=== PATIENT | male | born 1995 | race Caucasian/White ===

== ENCOUNTER 2019-01-29 09:11 | Emergency (ER) | payer SELFPAY ==
--- NOTE | 2019-01-29 09:25 | EDM.PDOC ---
ED HPI GENERAL MEDICAL PROBLEM - General Chief Complaint: Back Pain or Injury Stated Complaint: PAIN IN THE GROWNING Time Seen by Provider: 01/29/19 09:20 Source of Information: Reports: Patient History Limitations: Reports: No Limitations - History of Present Illness INITIAL COMMENTS - FREE TEXT/NARRATIVE: History of present illness: []Patient was at work this morning and strapped in a pelvic harness working approximately 20 feet in the air and was and was unexpectedly lifted by a winch and then dropped approximately 3 feet in the air. He complains of pain in his low back and pelvis where the harness jerked him. He said his touched his low back above his buttock and he felt some numbness. He denies any incontinence or numbness and tingling in lower extremities. Patient ambulated into the ED with a coworker. Review of systems: As per history of present illness and below otherwise all systems reviewed and negative. Past medical history: As per history of present illness and as reviewed below otherwise noncontributory. Surgical history: As per history of present illness and as reviewed below otherwise noncontributory. Social history: No reported history of drug or alcohol abuse. Family history: As per history of present illness and as reviewed below otherwise noncontributory. Physical exam: General: Well developed, well nourished in NAD HEENT: Atraumatic, normocephalic, pupils reactive, negative for conjunctival pallor or scleral icterus, mucous membranes moist, throat clear, neck supple, nontender, trachea midline. Lungs: Clear to auscultation, breath sounds equal bilaterally, chest nontender. Heart: S1S2, regular, negative for clicks, rubs, or JVD. Abdomen: NABS, Soft, nondistended, nontender. Negative for masses or hepatosplenomegaly. Negative for costovertebral tenderness. Pelvis: Stable nontender. Genitourinary: Deferred. Rectal: Deferred. Extremities: Atraumatic, negative for cords or calf pain. Neurovascular unremarkable. Neuro: Awake, alert, oriented. Cranial nerves II through XII unremarkable. Cerebellum unremarkable. Motor and sensory unremarkable throughout. Exam nonfocal. Skin:warm and dry Diagnostics: CBC, chemistry, UA, CT lumbar spine and abdomen and pelvis Therapeutics: Declined pain meds ED Course: Stable Impression: Right-sided Superior rami nondisplaced fracture Prescriptions: Tramadol Plan: Follow-up with orthopedics or primary care take meds as directed return if symptoms worsen or change., Definitive disposition and diagnosis as appropriate pending reevaluation and review of above. bilateral groin and lower back Pain Score (Numeric/FACES): 7 - Related Data Allergies Allergy/AdvReac Type Severity Reaction Status Date / Time No Known Allergies Allergy Verified 01/29/19 09:14 Home Meds: Home Meds traMADol HCl [Tramadol HCl] 50 mg PO Q6H PRN #20 tablet 01/29/19 [Rx] Past Medical History - Past Health History Medical/Surgical History: Denies Medical/Surgical History Other Respiratory History: 3 years ago hx of pneumonia and fluid in the lungs - Past Surgical History Other Musculoskeletal Surgeries/Procedures:: foot surgery ED ROS GENERAL - Review of Systems Review Of Systems: ROS reveals no pertinent complaints other than HPI. ED EXAM,LOWER BACK PAIN/INJURY - Physical Exam Exam: See Below Course - Vital Signs Last Recorded V/S: Last Vital Signs Temp 98.0 F 01/29/19 09:29 Pulse 96 01/29/19 09:29 Resp 16 01/29/19 09:29 BP 117/74 01/29/19 09:29 Pulse Ox 96 01/29/19 09:29 - Orders/Labs/Meds Orders: Active Orders 24 hr Category Date Time Status Sodium Chloride 0.9% [Normal Saline] 1,000 ml Med 01/29/19 09:46 Active IV .Bolus Sodium Chloride 0.9% [Saline Flush] Med 01/29/19 09:31 Active 10 ml FLUSH ASDIRECTED PRN Sodium Chloride 0.9% [Saline Flush] Med 01/29/19 09:31 Active 2.5 ml FLUSH ASDIRECTED PRN Saline Lock Insert [OM.PC] Stat Oth 01/29/19 09:31 Ordered Medication Orders Sodium Chloride (Normal Saline) 1,000 mls @ 999 mls/hr IV .Bolus ONE Stop: 01/29/19 10:46 Last Admin: 01/29/19 10:07 Dose: 999 mls/hr Sodium Chloride (Saline Flush) 10 ml FLUSH ASDIRECTED PRN PRN Reason: Keep Vein Open Last Admin: 01/29/19 10:08 Dose: 10 ml Sodium Chloride (Saline Flush) 2.5 ml FLUSH ASDIRECTED PRN PRN Reason: Keep Vein Open Last Admin: 01/29/19 10:08 Dose: 2.5 ml Labs: Laboratory Tests 01/29/19 01/29/19 01/29/19 Range/Units 09:40 09:40 09:45 WBC 7.45 (4.0-11.0) K/uL RBC 4.56 (4.50-5.90) M/uL Hgb 14.6 (13.0-17.0) g/dL Hct 41.5 (38.0-50.0) % MCV 91.0 (80.0-98.0) fL MCH 32.0 (27.0-32.0) pg MCHC 35.2 (31.0-37.0) g/dL RDW Std Deviation 42.4 (28.0-62.0) fl RDW Coeff of Tiana 13 (11.0-15.0) % Plt Count 224 (150-400) K/uL MPV 9.60 (7.40-12.00) fL Neut % (Auto) 71.0 (48.0-80.0) % Lymph % (Auto) 19.6 (16.0-40.0) % Graves % (Auto) 7.9 (0.0-15.0) % Eos % (Auto) 1.2 (0.0-7.0) % Baso % (Auto) 0.3 (0.0-1.5) % Neut # (Auto) 5.3 (1.4-5.7) K/uL Lymph # (Auto) 1.5 (0.6-2.4) K/uL Graves # (Auto) 0.6 (0.0-0.8) K/uL Eos # (Auto) 0.1 (0.0-0.7) K/uL Baso # (Auto) 0.0 (0.0-0.1) K/uL Nucleated RBC % 0.0 /100WBC Nucleated RBCs # 0 K/uL Sodium 137 (136-148) mmol/L Potassium 3.8 (3.5-5.1) mmol/L Chloride 103 (98-107) mmol/L Carbon Dioxide 23.4 (21.0-32.0) mmol/L BUN 6 L (7.0-18.0) mg/dL Creatinine 0.8 (0.8-1.3) mg/dL Est Cr Clr Drug Dosing 159.52 mL/min Estimated GFR (MDRD) > 60.0 ml/min Glucose 98 (74-106) mg/dL Calcium 8.4 L (8.5-10.1) mg/dL Total Bilirubin 0.7 (0.2-1.0) mg/dL AST 20 (15-37) IU/L ALT 22 (14-63) IU/L Alkaline Phosphatase 96 (46-116) U/L Total Protein 7.0 (6.4-8.2) g/dL Albumin 3.9 (3.4-5.0) g/dL Globulin 3.1 (2.6-4.0) g/dL Albumin/Globulin Ratio 1.3 (0.9-1.6) Urine Color YELLOW Urine Appearance CLEAR Urine pH 6.5 (5.0-8.0) Ur Specific [place] <= 1.005 (1.001-1.035) Urine Protein NEGATIVE (NEGATIVE) mg/dL Urine Glucose (UA) NEGATIVE (NEGATIVE) mg/dL Urine Ketones NEGATIVE (NEGATIVE) mg/dL Urine Occult Blood NEGATIVE (NEGATIVE) Urine Nitrite NEGATIVE (NEGATIVE) Urine Bilirubin NEGATIVE (NEGATIVE) Urine Urobilinogen 0.2 (<2.0) EU/dL Ur Leukocyte Esterase NEGATIVE (NEGATIVE) Urine RBC NONE SEEN (0-2/HPF) Urine WBC 0-1 (0-5/HPF) Ur Epithelial Cells NOT SEEN (NONE-FEW) Urine Bacteria RARE (NEGATIVE) Meds: Medications Generic Name Dose Route Start Last Admin Trade Name Freq PRN Reason Stop Dose Admin Sodium Chloride 1,000 mls @ 999 mls/hr 01/29/19 09:46 01/29/19 10:07 Normal Saline IV 01/29/19 10:46 999 mls/hr .Bolus ONE Administration Sodium Chloride 10 ml 01/29/19 09:31 01/29/19 10:08 Saline Flush FLUSH 10 ml ASDIRECTED PRN Administration Keep Vein Open Sodium Chloride 2.5 ml 01/29/19 09:31 01/29/19 10:08 Saline Flush FLUSH 2.5 ml ASDIRECTED PRN Administration Keep Vein Open Discontinued Medications Generic Name Dose Route Start Last Admin Trade Name Freq PRN Reason Stop Dose Admin Iopamidol 100 ml 01/29/19 09:54 01/29/19 10:02 Isovue Multipack-370 (76%) IVPUSH 01/29/19 09:55 100 ml ONETIME STA Administration Departure - Departure Time of Disposition: 10:44 Disposition: Home, Self-Care 01 Condition: Good Clinical Impression: Closed fracture of single pubic ramus of pelvis Qualifiers: Encounter type: initial encounter Laterality: right Qualified Code(s): S32.591A - Other specified fracture of right pubis, initial encounter for closed fracture - Discharge Information *PRESCRIPTION DRUG MONITORING PROGRAM REVIEWED*: No *COPY OF PRESCRIPTION DRUG MONITORING REPORT IN PATIENT NAVA: No Referrals: PCP,None [Primary Care Provider] - Forms: ED Department Discharge Additional Instructions: The following information is given to patients seen in the emergency department who are being discharged to home. This information is to outline your options for follow-up care. We provide all patients seen in our emergency department with a follow-up referral. The need for follow-up, as well as the timing and circumstances, are variable depending upon the specifics of your emergency department visit. If you don't have a primary care physician on staff, we will provide you with a referral. We always advise you to contact your personal physician following an emergency department visit to inform them of the circumstance of the visit and for follow-up with them and/or the need for any referrals to a consulting specialist. The emergency department will also refer you to a specialist when appropriate. This referral assures that you have the opportunity for follow-up care with a specialist. All of these measure are taken in an effort to provide you with optimal care, which includes your follow-up. Under all circumstances we always encourage you to contact your private physician who remains a resource for coordinating your care. When calling for follow-up care, please make the office aware that this follow-up is from your recent emergency room visit. If for any reason you are refused follow-up, please contact the [facility] Emergency Department at and asked to speak to the emergency department charge nurse. Take meds as directed, follow up with your primary care physician, return to ER if symptoms worsen or change. [facility] [address] [place] [id number] - My Orders Last 24 Hours: My Active Orders 01/29/19 09:31 Sodium Chloride 0.9% [Saline Flush] 10 ml FLUSH ASDIRECTED PRN Sodium Chloride 0.9% [Saline Flush] 2.5 ml FLUSH ASDIRECTED PRN Saline Lock Insert [OM.PC] Stat 01/29/19 09:46 Sodium Chloride 0.9% [Normal Saline] 1,000 ml IV .Bolus - Assessment/Plan Last 24 Hours: My Active Orders 01/29/19 09:31 Sodium Chloride 0.9% [Saline Flush] 10 ml FLUSH ASDIRECTED PRN Sodium Chloride 0.9% [Saline Flush] 2.5 ml FLUSH ASDIRECTED PRN Saline Lock Insert [OM.PC] Stat 01/29/19 09:46 Sodium Chloride 0.9% [Normal Saline] 1,000 ml IV .Bolus
[2019-01-29] MEDS ORDERED: Sodium Chloride 0.9% 10 ML Syringe FLUSH PRN (09:31)
[2019-01-29] MEDS ORDERED: Sodium Chloride 0.9% 2.5 ML Syringe FLUSH PRN (09:31)
[2019-01-29] MEDS ORDERED: Sodium Chloride 0.9% 1,000 ML IV ONE (09:46)
[2019-01-29] MEDS ORDERED: Iopamidol 755 MG/ML 500 ML Multipack Bottle IVPUSH STA (09:54)
[2019-01-29 10:11] LABS: CHLORIDE,CL 103 mmol/L (98-107); SODIUM,NA 137 mmol/L (136-148)
--- NOTE | 2019-01-29 10:30 | CT ---
CT of the lumbar spine, abdomen and pelvis with contrast. HISTORY: Pain TECHNIQUE: Axial CT images were obtained of the lumbar spine, abdomen and pelvis following administration of 100 mL of Isovue-370 in the left antecubital fossa without complication. Coronal and sagittal reconstructions obtained. FINDINGS: The lung bases are clear, no pleural effusion. The liver, spleen, adrenal glands, and pancreas appear normal. The gallbladder is normal. There is no bulky retroperitoneal lymphadenopathy or abdominal ascites. The kidneys enhance and function symmetrically without evidence of obstructive uropathy. The large and small bowel are normal in caliber without evidence of obstruction. No focal pericolonic inflammation or stranding. The urinary bladder is minimally filled. Possible trace free pelvic fluid. No bulky pelvic lymphadenopathy. Appendix is not well characterized. Lumbar spine: There is a nondisplaced fracture within the superior ramus without a definitive corresponding fracture within the inferior ramus visualized. The lumbar spinal alignment is otherwise normal. Vertebral body heights and disc spaces appear well-maintained. IMPRESSION: 1. Nondisplaced right superior pubic ramus fracture. 2. Otherwise no additional fracture identified. 3. Possible trace free pelvic fluid. This is minimal. 4. No evidence of a solid organ injury.
[2019-01-29 10:48] VITALS: BP 124/71
== END 2019-01-29 10:50 | disposition home or self-care (01) ==
LOC: MW.ED 09:11
DX: S32.511A Fracture of superior rim of right pubis, initial encounter for closed fracture (principal); Y99.0 Civilian activity done for income or pay; X50.9XXA Other and unspecified overexertion or strenuous movements or postures, initial encounter
CPT/HCPCS: 36415; 72131; 74177; 80053; 81001; 85025; 96360; 99284; J7040; Q9967

== ENCOUNTER 2021-03-05 15:48 | Emergency (ER) | payer BC ==
[2021-03-05] MEDS ORDERED: Sodium Chloride 0.9% 1,000 ML IV ONE (16:44)
[2021-03-05] MEDS ORDERED: Piperacillin/Tazobactam 3.375 GM in Sodium Chloride 0.9% 50 ML IV ONE (16:45)
[2021-03-05] MEDS ORDERED: methylPREDNISolone Sodium Succinate 125 MG/2 ML SDV IVPUSH ONE (16:45)
[2021-03-05] MEDS ORDERED: Ketorolac 30 MG/ML SDV IVPUSH ONE (16:46)
[2021-03-05] MEDS ORDERED: Acetaminophen 500 MG Tab PO ONE (16:46)
[2021-03-05] MEDS ORDERED: Albuterol/Ipratropium 3.0-0.5 MG/3 ML Neb Soln NEB ONE ×3 (16:46)
[2021-03-05] MEDS ORDERED: Albuterol/Ipratropium 3.0-0.5 MG/3 ML Neb Soln ONE (16:54)
[2021-03-05 17:08] LABS: BLOOD UREA NITROGEN,BUN 5 mg/dL (7.0-18.0); CARBON DIOXIDE,CO2 23.9 mmol/L (21.0-32.0); CHLORIDE,CL 99 mmol/L (98-107); GLUCOSE RANDOM 143 mg/dL (74-106); SODIUM,NA 136 mmol/L (136-148)
--- NOTE | 2021-03-05 17:13 | EDM.PDOC ---
ED HPI GENERAL MEDICAL PROBLEM - General Chief Complaint: Respiratory Problem Stated Complaint: INFECTION Time Seen by Provider: 03/05/21 15:56 Bilateral Chest Pain Score (Numeric/FACES): 6 - Related Data Allergies Allergy/AdvReac Type Severity Reaction Status Date / Time No Known Allergies Allergy Verified 03/05/21 16:27 Home Meds: Home Meds traMADol HCl [Tramadol HCl] 50 mg PO Q6H PRN #20 tablet 01/29/19 [Rx] Past Medical History - Past Health History Medical/Surgical History: Denies Medical/Surgical History Other Respiratory History: 3 years ago hx of pneumonia and fluid in the lungs - Past Surgical History Other Musculoskeletal Surgeries/Procedures:: foot surgery Social & Family History - Family History Family Medical History: No Pertinent Family History - Caffeine Use Caffeine Use: Reports: None Course - Vital Signs Last Recorded V/S: Last Vital Signs Temp 38.9 C H 03/05/21 16:58 Pulse 84 03/05/21 16:35 Resp 22 H 03/05/21 16:35 BP 117/67 03/05/21 16:35 Pulse Ox 97 03/05/21 16:35 - Orders/Labs/Meds Orders: Active Orders 24 hr Category Date Time Status Cardiac Monitoring [RC] . DIRECTED Care 03/05/21 16:44 Active EKG Documentation Completion [RC] STAT Care 03/05/21 16:44 Active RT Aerosol Therapy [RC] ASDIRECTED Care 03/05/21 16:46 Active RT Aerosol Therapy [RC] ASDIRECTED Care 03/05/21 16:46 Active RT Aerosol Therapy [RC] ASDIRECTED Care 03/05/21 16:46 Active Chest 2V [CR] Stat Exams 03/05/21 16:44 Ordered COVID-19/FLU A+B [MOLEC] Stat Lab 03/05/21 16:47 Ordered CULTURE BLOOD [BC] Stat Lab 03/05/21 16:34 Received CULTURE BLOOD [BC] Stat Lab 03/05/21 16:44 Received Piperacillin/Tazobactam [Piperacil-Tazobact] 3.375 gm Med 03/05/21 16:45 Active Sodium Chloride 0.9% [Normal Saline] 50 ml IV ONETIME Sodium Chloride 0.9% [Normal Saline] 1,000 ml Med 03/05/21 16:44 Active IV BOLUS Blood Culture x2 Reflex Set [OM.PC] Stat Oth 03/05/21 16:45 Ordered Medication Orders Sodium Chloride (Normal Saline) 1,000 mls @ 999 mls/hr IV BOLUS ONE Stop: 03/05/21 17:44 Last Admin: 03/05/21 16:57 Dose: 999 mls/hr Documented by: KATIANA Piperacillin Sod/Tazobactam (Sod 3.375 gm/ Sodium Chloride) 50 mls @ 100 mls/hr IV ONETIME ONE Stop: 03/05/21 17:14 Last Admin: 03/05/21 16:57 Dose: 100 mls/hr Documented by: KATIANA Labs: Laboratory Tests 03/05/21 03/05/21 03/05/21 Range/Units 16:34 16:34 16:34 WBC 12.18 H (4.0-11.0) K/uL RBC 3.75 L (4.50-5.90) M/uL Hgb 12.0 L (13.0-17.0) g/dL Hct 34.4 L (38.0-50.0) % MCV 91.7 (80.0-98.0) fL MCH 32.0 (27.0-32.0) pg MCHC 34.9 (31.0-37.0) g/dL RDW Std Deviation 43.1 (28.0-62.0) fl RDW Coeff of Tiana 13 (11.0-15.0) % Plt Count 213 (150-400) K/uL MPV 9.50 (7.40-12.00) fL Neut % (Auto) 80.8 H (48.0-80.0) % Lymph % (Auto) 10.2 L (16.0-40.0) % Chambers % (Auto) 8.6 (0.0-15.0) % Eos % (Auto) 0.2 (0.0-7.0) % Baso % (Auto) 0.2 (0.0-1.5) % Neut # (Auto) 9.9 H (1.4-5.7) K/uL Lymph # (Auto) 1.2 (0.6-2.4) K/uL [place] # (Auto) 1.1 H (0.0-0.8) K/uL Eos # (Auto) 0.0 (0.0-0.7) K/uL Baso # (Auto) 0.0 (0.0-0.1) K/uL Nucleated RBC % 0.0 /100WBC Nucleated RBCs # 0 K/uL Sodium 136 (136-148) mmol/L Potassium 3.0 L (3.5-5.1) mmol/L Chloride 99 (98-107) mmol/L Carbon Dioxide 23.9 (21.0-32.0) mmol/L BUN 5 L (7.0-18.0) mg/dL Creatinine 0.9 (0.8-1.3) mg/dL Est Cr Clr Drug Dosing 118.65 mL/min Estimated GFR (MDRD) > 60.0 ml/min Glucose 143 H (74-106) mg/dL Lactic Acid 1.6 (0.4-2.0) mmol/L Calcium 7.6 L (8.5-10.1) mg/dL Total Bilirubin 0.4 (0.2-1.0) mg/dL AST 15 (15-37) IU/L ALT 17 (14-63) IU/L Alkaline Phosphatase 79 (46-116) U/L Troponin I < 0.050 (0.000-0.056) ng/mL Total Protein 6.1 L (6.4-8.2) g/dL Albumin 2.9 L (3.4-5.0) g/dL Globulin 3.2 (2.6-4.0) g/dL Albumin/Globulin Ratio 0.9 (0.9-1.6) Meds: Medications Generic Name Dose Route Start Last Admin Trade Name Freq PRN Reason Stop Dose Admin Sodium Chloride 1,000 mls @ 999 mls/hr 03/05/21 16:44 03/05/21 16:57 Normal Saline IV 03/05/21 17:44 999 mls/hr BOLUS ONE Administration Piperacillin Sod/Tazobactam 50 mls @ 100 mls/hr 03/05/21 16:45 03/05/21 16:57 Sod 3.375 gm/ Sodium Chloride IV 03/05/21 17:14 100 mls/hr ONETIME ONE Administration Discontinued Medications Generic Name Dose Route Start Last Admin Trade Name Freq PRN Reason Stop Dose Admin Acetaminophen 1,000 mg 03/05/21 16:46 03/05/21 16:58 Acetaminophen 500 Mg Tab PO 03/05/21 16:47 1,000 mg ONETIME ONE Administration Albuterol/Ipratropium 3 ml 03/05/21 16:46 03/05/21 16:57 Albuterol/Ipratropium 3.0-0.5 Mg/3 Ml Neb Soln NEB 03/05/21 16:47 3 ml ONETIME ONE Administration Albuterol/Ipratropium 3 ml 03/05/21 16:46 03/05/21 16:57 Albuterol/Ipratropium 3.0-0.5 Mg/3 Ml Neb Soln NEB 03/05/21 16:47 3 ml ONETIME ONE Administration Albuterol/Ipratropium 3 ml 03/05/21 16:46 03/05/21 16:57 Albuterol/Ipratropium 3.0-0.5 Mg/3 Ml Neb Soln NEB 03/05/21 16:47 3 ml ONETIME ONE Administration Albuterol/Ipratropium Confirm 03/05/21 16:54 03/05/21 17:00 Albuterol/Ipratropium 3.0-0.5 Mg/3 Ml Neb Soln Administered 03/05/21 16:55 Not Given Dose 6 ml .ROUTE .STK-MED ONE Ketorolac Tromethamine 30 mg 03/05/21 16:46 03/05/21 16:58 Ketorolac 30 Mg/Ml Sdv IVPUSH 03/05/21 16:47 30 mg ONETIME ONE Administration Methylprednisolone Sodium Succinate 125 mg 03/05/21 16:45 03/05/21 16:58 Methylprednisolone Sodium Succinate 125 Mg/2 Ml Sdv IVPUSH 03/05/21 16:46 125 mg ONETIME ONE Administration Departure - Discharge Information Referrals: PCP,None [Primary Care Provider] - Sepsis Event Note (ED) - Evaluation Sepsis Screening Result: Possible Sepsis Risk - Focused Exam Vital Signs: Vital Signs Temp Temp Pulse Resp BP Pulse Ox 03/05/21 16:58 38.9 C H 03/05/21 16:35 39.4 C H 84 22 H 117/67 97
--- NOTE | 2021-03-05 17:14 | PCM.SN.2 ---
- Free Text/Narrative Note: EKG sinus rhythm incomplete right bundle branch block left anterior fascicular block. ST elevation consistent with possible pericarditis or early repole. Heart rate 91 [place] 157 [place] -105. No prior for comparison. Impression no obvious acute injury
[2021-03-05 17:41] VITALS: BP 128/67; PULSE 90
--- NOTE | 2021-03-05 17:42 | EDM.PDOC ---
ED HPI GENERAL MEDICAL PROBLEM - General Chief Complaint: Respiratory Problem Stated Complaint: INFECTION Time Seen by Provider: 03/05/21 15:56 Source of Information: Reports: Patient History Limitations: Reports: No Limitations - History of Present Illness INITIAL COMMENTS - FREE TEXT/NARRATIVE: HISTORY AND PHYSICAL: History of present illness: Patient is a 25-year-old male who presents to the ED today with concern of cough, fever, and worsening fatigue over the past 2 weeks. Patient states that 2 weeks ago, the rest of his family was sick with a "common cold ". Patient states that everybody else in his family improved but he has continued to have a fever, cough, and fatigue. Patient states that he does smoke a pack a day and has had to decrease the amount he smokes due to the cough and states that he has pain with deep inspiration. Patient states that his symptoms have worsened more over the past 3 days and states that he has had a difficult time working and s tates that he is concerned about getting fired as he is not able to perform his job due to his symptoms. Patient states his is also been concerned about him as the past 3 days when he gets off work he goes straight to bed and does not interact with her. Patient states that he "gets this every year "and states that steroids have helped in the past. Patient denies any other health history or any other symptoms or concerns. Patient denies shortness of breath. Denies headache, neck stiff ness, change in vision, syncope, or near syncope. Denies nausea, vomiting, abdominal pain, diarrhea, constipation, or dysuria. Has not noted any blood in urine or stool. Patient has been eating and drinking appropriately. Review of systems: As per history of present illness and below otherwise all systems reviewed and negative. Past medical history: As per history of present illness and as reviewed below otherwise noncontributory. Surgical history: As per history of present illness and as reviewed below otherwise noncontributory. Social history: See social history for further information Family history: As per history of present illness and as reviewed below otherwise noncontributory. Physical exam: General: Patient is alert, oriented, and in no acute distress. Patient laying comfortably on exam table, tired appearing. Patient has been increased respiratory rate at 22 and febrile at 102.9, otherwise vitally stable and reviewed by me. HEENT: Atraumatic, normocephalic, pupils equal and reactive bilaterally, negative for conjunctival pallor or scleral icterus, mucous membranes moist, TMs normal bilaterally, throat clear, neck supple, nontender, trachea midline. No drooling or trismus noted. No meningeal signs. No hot potato voice noted. Lungs: Coarse crackles heard in the right lower and left lower lung base with diffuse expiratory wheezing throughout all lung villatoro to auscultation, breath sounds equal bilaterally, chest nontender. Wet cough on exam. Patient speaking clearly without breathlessness, no accessory muscle use or respiratory distress. Heart: S1S2, regular rate and rhythm without overt murmur Abdomen: Soft, nondistended, nontender. Negative for masses or hepatosplenomegaly. Negative for costovertebral tenderness. Pelvis: Stable nontender. Genitourinary: Deferred. Rectal: Deferred. Skin: Intact, warm, dry. No lesions or rashes noted. Extremities: Atraumatic, negative for cords or calf pain. Neurovascular unremarkable. Neuro: Awake, alert, oriented. Cranial nerves II through XII unremarkable. Cerebellum unremarkable. Motor and sensory unremarkable throughout. Exam nonfocal. Notes: Patient is a 25-year-old male who presents emergency room today secondary to a 2-week history of worsening fatigue, fever, cough and pleuritic chest pain. Upon arrival to the ED, patient is tired appearing and febrile with a mild increased respiratory rate. Patient does have coarse Crackles at bilateral lung bases with diffuse expiratory wheezing throughout all lung villatoro. Patient also has a wet cough on exam but is able to speak without breathlessness and not using accessory muscle use for breathing. [address] Reyes's dictation for specific EKG interpretation. However, EKG is severely limited and suboptimal due to severe baseline wander. No STEMI CBC shows a leukocytosis at 12.18. Mild anemia with a red blood cell count of 3.75, hemoglobin of 12, and hematocrit of 34.4. Remainder of CBC unremarkable. Chemistry shows a hypokalemia at 3, glucose mildly elevated at 143, and corrected calcium mildly decreased at 8. Patient has received all therapeutics at this time but is declining chest x-ray and Covid swab. Patient is requesting to remove IV access and immediately wants to leave the emergency room AGAINST MEDICAL ADVICE. The patient is clinically not intoxicated, free from distracting pain, appears to have intact insight, judgment and reason and in my medical opinion has the capacity to make decisions. The patient is also not under any duress to leave the hospital. In this scenario, it would be battery to subject a patient to treatment against his will. I have voiced my concerns for the patient's health maría elena ca that a full evaluation and treatment had not occurred. I have discussed the need for continued evaluation to determine if his symptoms are caused by a condition that present risk of or morbidity. Risks including but not limited to , permanent disability, prolonged hospitalization, prolonged illness, were discussed. I tried offering alternative options in hopes that the patient might be amenable to partial evaluation and treatment which would be medically beneficial to the patient, though the patient declined my options and insisted on leaving. Because I have been unable to convince the patient to stay, I answered all of his questions about his condition and asked him to return to the ED as soon as possible to complete his evaluation, especially if his symptoms worsen or do not improve. I emphasized that leaving against medical advice does not preclude returning here for further evaluation. I asked the patient to return if he changes his mind about the further evaluation and treatment. I strongly encouraged the patient to return to this Emergency Department or any Emergency Department at any time, particularly with worsening symptoms. At this time, patient did not want to stay to receive any correction of his mild electrolyte derangements. Discussed importance for follow-up with her primary care provider. Diagnostics: EKG, CBC, CMP, lactate, blood culture x 2 (patient declines chest x-ray and COVID-19. All risks versus benefits discussed with patient and expresses understanding) Therapeutics: Duo neb x 3, solumedrol, Zosyn IV, NS, Tylenol, Toradol Prescription: Patient with the ED AGAINST MEDICAL ADVICE prior to discharge Impression: Cough Fever, unspecified Leukocytosis Coarse crackles, bilateral, Wheezing, expiratory Hypocalcemia Hypokalemia Left the ED against medical advice Plan: Patient left the ED AGAINST MEDICAL ADVICE and I was not able to provide any discharge instructions or extensive conversation on discharge with patient Definitive disposition and diagnosis as appropriate pending reevaluation and review of above. Bilateral Chest Pain Score (Numeric/FACES): 6 - Related Data Allergies Allergy/AdvReac Type Severity Reaction Status Date / Time No Known Allergies Allergy Verified 03/05/21 16:27 Home Meds: Home Meds traMADol HCl [Tramadol HCl] 50 mg PO Q6H PRN #20 tablet 01/29/19 [Rx] Past Medical History - Past Health History Medical/Surgical History: Denies Medical/Surgical History Other Respiratory History: 3 years ago hx of pneumonia and fluid in the lungs - Past Surgical History Other Musculoskeletal Surgeries/Procedures:: foot surgery Social & Family History - Family History Family Medical History: No Pertinent Family History - Tobacco Use Tobacco Use Status *Q: Current Every Day Tobacco User Years of Tobacco use: 10 Packs/Tins Daily: 0.5 - Caffeine Use Caffeine Use: Reports: None - Recreational Drug Use Recreational Drug Use: No ED ROS GENERAL - Review of Systems Review Of Systems: Comprehensive ROS is negative, except as noted in HPI. ED EXAM, GENERAL - Physical Exam Exam: See Below (see dictation) Course - Vital Signs Last Recorded V/S: Last Vital Signs Temp 102.1 F H 03/05/21 16:58 Pulse 90 03/05/21 17:41 Resp 16 03/05/21 17:41 BP 128/67 03/05/21 17:41 Pulse Ox 95 03/05/21 17:41 - Orders/Labs/Meds Orders: Active Orders 24 hr Category Date Time Status Chest 2V [CR] Stat Exams 03/05/21 16:44 Ordered COVID-19/FLU A+B [MOLEC] Stat Lab 03/05/21 16:47 Ordered CULTURE BLOOD [BC] Stat Lab 03/05/21 16:34 Received CULTURE BLOOD [BC] Stat Lab 03/05/21 16:44 Received Blood Culture x2 Reflex Set [OM.PC] Stat Oth 03/05/21 16:45 Ordered Labs: Laboratory Tests 03/05/21 03/05/21 03/05/21 Range/Units 16:34 16:34 16:34 WBC 12.18 H (4.0-11.0) K/uL RBC 3.75 L (4.50-5.90) M/uL Hgb 12.0 L (13.0-17.0) g/dL Hct 34.4 L (38.0-50.0) % MCV 91.7 (80.0-98.0) fL MCH 32.0 (27.0-32.0) pg MCHC 34.9 (31.0-37.0) g/dL RDW Std Deviation 43.1 (28.0-62.0) fl RDW Coeff of Tiana 13 (11.0-15.0) % Plt Count 213 (150-400) K/uL MPV 9.50 (7.40-12.00) fL Neut % (Auto) 80.8 H (48.0-80.0) % Lymph % (Auto) 10.2 L (16.0-40.0) % [place] % (Auto) 8.6 (0.0-15.0) % Eos % (Auto) 0.2 (0.0-7.0) % Baso % (Auto) 0.2 (0.0-1.5) % Neut # (Auto) 9.9 H (1.4-5.7) K/uL Lymph # (Auto) 1.2 (0.6-2.4) K/uL [place] # (Auto) 1.1 H (0.0-0.8) K/uL Eos # (Auto) 0.0 (0.0-0.7) K/uL Baso # (Auto) 0.0 (0.0-0.1) K/uL Nucleated RBC % 0.0 /100WBC Nucleated RBCs # 0 K/uL Sodium 136 (136-148) mmol/L Potassium 3.0 L (3.5-5.1) mmol/L Chloride 99 (98-107) mmol/L Carbon Dioxide 23.9 (21.0-32.0) mmol/L BUN 5 L (7.0-18.0) mg/dL Creatinine 0.9 (0.8-1.3) mg/dL Est Cr Clr Drug Dosing 118.65 mL/min Estimated GFR (MDRD) > 60.0 ml/min Glucose 143 H (74-106) mg/dL Lactic Acid 1.6 (0.4-2.0) mmol/L Calcium 7.6 L (8.5-10.1) mg/dL Total Bilirubin 0.4 (0.2-1.0) mg/dL AST 15 (15-37) IU/L ALT 17 (14-63) IU/L Alkaline Phosphatase 79 (46-116) U/L Troponin I < 0.050 (0.000-0.056) ng/mL Total Protein 6.1 L (6.4-8.2) g/dL Albumin 2.9 L (3.4-5.0) g/dL Globulin 3.2 (2.6-4.0) g/dL Albumin/Globulin Ratio 0.9 (0.9-1.6) Meds: Medications Discontinued Medications Generic Name Dose Route Start Last Admin Trade Name Ruby PRN Reason Stop Dose Admin Acetaminophen 1,000 mg 03/05/21 16:46 03/05/21 16:58 Acetaminophen 500 Mg Tab PO 03/05/21 16:47 1,000 mg ONETIME ONE Administration Albuterol/Ipratropium 3 ml 03/05/21 16:46 03/05/21 16:57 Albuterol/Ipratropium 3.0-0.5 Mg/3 Ml Neb Soln NEB 03/05/21 16:47 3 ml ONETIME ONE Administration Albuterol/Ipratropium 3 ml 03/05/21 16:46 03/05/21 16:57 Albuterol/Ipratropium 3.0-0.5 Mg/3 Ml Neb Soln NEB 03/05/21 16:47 3 ml ONETIME ONE Administration Albuterol/Ipratropium 3 ml 03/05/21 16:46 03/05/21 16:57 Albuterol/Ipratropium 3.0-0.5 Mg/3 Ml Neb Soln NEB 03/05/21 16:47 3 ml ONETIME ONE Administration Albuterol/Ipratropium Confirm 03/05/21 16:54 03/05/21 17:00 Albuterol/Ipratropium 3.0-0.5 Mg/3 Ml Neb Soln Administered 03/05/21 16:55 Not Given Dose 6 ml .ROUTE .STK-MED ONE Sodium Chloride 1,000 mls @ 999 mls/hr 03/05/21 16:44 03/05/21 16:57 Normal Saline IV 03/05/21 17:44 999 mls/hr BOLUS ONE Administration Piperacillin Sod/Tazobactam 50 mls @ 100 mls/hr 03/05/21 16:45 03/05/21 16:57 Sod 3.375 gm/ Sodium Chloride IV 03/05/21 17:14 100 mls/hr ONETIME ONE Administration Ketorolac Tromethamine 30 mg 03/05/21 16:46 03/05/21 16:58 Ketorolac 30 Mg/Ml Sdv IVPUSH 03/05/21 16:47 30 mg ONETIME ONE Administration Methylprednisolone Sodium Succinate 125 mg 03/05/21 16:45 03/05/21 16:58 Methylprednisolone Sodium Succinate 125 Mg/2 Ml Sdv IVPUSH 03/05/21 16:46 125 mg ONETIME ONE Administration Departure - Departure Time of Disposition: 17:40 Disposition: Against Medical Advice 07 Clinical Impression: Chest crackles, Wheezing, Left against medical advice, Hypokalemia, Hypocalcemia Fever Qualifiers: Fever type: unspecified Qualified Code(s): R50.9 - Fever, unspecified Leukocytosis Qualifiers: Leukocytosis type: unspecified Qualified Code(s): D72.829 - Elevated white blood cell count, unspecified - Discharge Information Referrals: PCP,None [Primary Care Provider] - Forms: ED Department Discharge Additional Instructions: Patient left the ED AMA before I was able to provide instructions Sepsis Event Note (ED) - Evaluation Sepsis Screening Result: Possible Sepsis Risk - Focused Exam Vital Signs: Vital Signs Temp Temp Pulse Resp BP Pulse Ox 03/05/21 17:41 90 16 128/67 95 03/05/21 16:58 102.1 F H 03/05/21 16:35 102.9 F H 84 22 H 117/67 97 - My Orders Last 24 Hours: My Active Orders 03/05/21 16:34 CULTURE BLOOD [BC] Stat 03/05/21 16:44 Chest 2V [CR] Stat CULTURE BLOOD [BC] Stat 03/05/21 16:45 Blood Culture x2 Reflex Set [OM.PC] Stat 03/05/21 16:47 COVID-19/FLU A+B [MOLEC] Stat - Assessment/Plan Last 24 Hours: My Active Orders 03/05/21 16:34 CULTURE BLOOD [BC] Stat 03/05/21 16:44 Chest 2V [CR] Stat CULTURE BLOOD [BC] Stat 03/05/21 16:45 Blood Culture x2 Reflex Set [OM.PC] Stat 03/05/21 16:47 COVID-19/FLU A+B [MOLEC] Stat
== END 2021-03-05 17:42 | disposition left against medical advice (07) ==
LOC: MW.ED 15:48
DX: D72.829 Elevated white blood cell count, unspecified (principal); E87.6 Hypokalemia; E83.51 Hypocalcemia; R05 Cough; R07.81 Pleurodynia; F17.210 Nicotine dependence, cigarettes, uncomplicated
CPT/HCPCS: 36415; 80053; 83605; 84484; 85025; 87040; 93005; 94640; 96365; 96375; 99284; A9270; J1885; J2543; J2930; J7030; 93010; J7620-GY

== ENCOUNTER 2021-11-04 22:37 | Emergency (ER) | payer BC ==
[2021-11-04] MEDS ORDERED: Ketorolac 30 MG/ML SDV IVPUSH ONE (22:48)
[2021-11-04] MEDS ORDERED: Sodium Chloride 0.9% 10 ML Syringe FLUSH PRN (22:48)
[2021-11-04] MEDS ORDERED: Sodium Chloride 0.9% 2.5 ML Syringe FLUSH PRN (22:48)
[2021-11-04 23:22] LABS: BLOOD UREA NITROGEN,BUN 4 mg/dL (7.0-18.0); CARBON DIOXIDE,CO2 28.2 mmol/L (21.0-32.0); CHLORIDE,CL 103 mmol/L (98-107); GLUCOSE RANDOM 104 mg/dL (74-106); POTASSIUM,K 3.9 mmol/L (3.5-5.1); SODIUM,NA 139 mmol/L (136-148)
[2021-11-05] MEDS ORDERED: Doxycycline 100 MG Cap PO ONE (00:04)
[2021-11-05 00:26] VITALS: BP 110/64; PULSE 78
== END 2021-11-05 00:18 | disposition home or self-care (01) ==
LOC: MW.ED 22:37
DX: J18.9 Pneumonia, unspecified organism (principal)
CPT/HCPCS: 36415; 71045; 80053; 84484; 85025; 85379; 93005; 96374; 99285; A9270; J1885; 93010; 99284

== ENCOUNTER 2024-10-25 01:48 | Emergency (ER) | payer BC ==
[2024-10-25] MEDS ORDERED: Sodium Chloride 0.9% 20 ML SDV IV PRN (02:07)
[2024-10-25] MEDS: Sodium Chloride 0.9% 2.5 ML Syringe FLUSH PRN (02:14)
[2024-10-25] MEDS: Sodium Chloride 0.9% 10 ML Syringe FLUSH PRN (02:14)
[2024-10-25] MEDS: Aspirin 81 MG Tab.Chew PO ONE (02:14)
[2024-10-25 02:16] LABS: BASOPHILS ABSOLUTE AUTO 0.05 K/uL (0.00-0.20); BASOPHILS PERCENT AUTO 0.4 % (0.0-1.0); EOSINOPHILS ABSOLUTE AUTO 0.48 K/uL (0.00-0.45); EOSINOPHILS PERCENT AUTO 3.8 % (0.0-6.0); HEMOGLOBIN 13.6 g/dL (14.0-18.0); IMMATURE GRAN ABSOLUTE AUTO 0.02 K/uL (0.00-0.05); IMMATURE GRAN PERCENT AUTO 0.2 % (0.0-0.4); LYMPHOCYTES ABSOLUTE AUTO 3.91 K/uL (1.00-4.80); LYMPHOCYTES PERCENT AUTO 31.1 % (24.0-44.0); MEAN CORPUSCULAR HEMOGLOBIN 33.3 pg (28.0-32.0); MEAN CORPUSCULAR HGB CONC 34.9 g/dL (32.0-36.0); MEAN CORPUSCULAR VOLUME 95.4 fL (83.0-99.0); MEAN PLATELET VOLUME 8.8 fL (9.4-12.4); MONOCYTES ABSOLUTE AUTO 0.76 K/uL (0.00-0.80); NEUTROPHILS ABSOLUTE AUTO 7.37 K/uL (1.80-7.70); NEUTROPHILS PERCENT AUTO 58.5 % (41.0-71.0); PLATELET COUNT,PLT 243 K/uL (150-400); RED BLOOD CELL COUNT 4.09 M/uL (4.52-5.90); WHITE BLOOD CELL COUNT,WBC 12.59 K/uL (3.9-11.3)
[2024-10-25] MEDS ORDERED: Naloxone 0.4 MG/ML SDV IVPUSH PRN (02:26)
[2024-10-25] MEDS: fentaNYL 50 MCG/ML SDV IVPUSH ONE (02:34)
[2024-10-25 02:47] LABS: D-DIMER QUANTITATIVE 0.21 mg/L FEU (0.00-0.50); INR 1.05 (0.86-1.11); PTT,PARTIAL THROMBOPLSTIN TIME 31.6 SEC (23.9-30.7)
[2024-10-25 02:53] LABS: A/G RATIO 1.2 (0.9-1.6); ALBUMIN 3.5 g/dL (3.4-5.0); BILIRUBIN TOTAL 0.4 mg/dL (0.2-1.0); CALCIUM 8.3 mg/dL (8.5-10.1); CARBON DIOXIDE,CO2 27.7 mmol/L (21.0-32.0); EST CRCL DRUG DOSING (CG) 100.07 mL/min; MAGNESIUM 1.6 mg/dL (1.8-2.4); POTASSIUM,K 4.1 mmol/L (3.5-5.1); PROTEIN TOTAL,TP 6.5 g/dL (6.4-8.2)
[2024-10-25] MEDS: Magnesium Sulf/Wat 2 GM/50 mL 2 GM in Premix Bag 1 BAG IV ONE (03:58)
[2024-10-25 05:32] VITALS: BP 117/55; PULSE 65
== END 2024-10-25 06:26 | disposition left against medical advice (07) ==
LOC: MW.ED 01:48
DX: R07.89 Other chest pain (principal); F17.210 Nicotine dependence, cigarettes, uncomplicated
CPT/HCPCS: 36415; 71045; 71046; 80053; 83605; 83690; 83735; 83880; 84484; 85025; 85379; 85610; 85652; 85730; 86140; 87040; 87428; 93005; 96365; 99285; A9270; J3475